=== PATIENT | female | born 1965 | race Caucasian/White ===

== ENCOUNTER → 2016-12-14 | Outpatient (CLI) | payer BC ==
--- NOTE | 2016-12-17 09:21 | MM ---
Reason for exam: screening (asymptomatic). Last mammogram was performed 14 years and 10 months ago. History: Taking estrogen. Physical Findings: A clinical breast exam by your physician is recommended on an annual basis and results should be correlated with mammographic findings. MG Screening Mammo w CAD Bilateral CC and MLO view(s) were taken. Prior study comparison: January 28, 2002, bilateral screening mammogram. The breast tissue is heterogeneously dense. This may lower the sensitivity of mammography. There is no discrete abnormality. ASSESSMENT: Negative, BI-RAD 1 RECOMMENDATION: Routine screening mammogram of both breasts in 1 year.
== END | disposition home or self-care (01) ==
LOC: RADMAMWWP 08:31
PROVIDERS: ATTEND Obstetrics & Gynecology
DX: Z12.31 Encounter for screening mammogram for malignant neoplasm of breast (principal)

== ENCOUNTER 2016-12-31 09:58 | Emergency (ER) | payer BC ==
[2016-12-31 10:13] VITALS: RESP 17
--- NOTE | 2016-12-31 10:28 | ED ---
Fall HPI - General Chief Complaint: Fall Stated Complaint: fall Time Seen by Provider: 12/31/16 10:15 Source: patient, RN notes reviewed Mode of arrival: ambulatory - History of Present Illness Initial Comments: 51-year-old female presents emergency 5 chief complaint of fall. Patient states that on Saturday morning she tripped on the stairs and fell down the stairs. Patient states she hit her head and her back as she went down the stairs. Patient states she continues to have a headache with nausea. Patient states she also continuous pain in her tailbone area. Patient states she went to work and she just was getting worse so she thought that she should be evaluated. Patient states also at that time she developed pain but that has resolved. Patient states she did not pass out when she hit her head. Patient states that there was no other injuries from the incident. Patient states that there is no other injuries at this time. - Related Data Home Medications Medication Instructions Recorded Confirmed Amoxicillin 500 mg PO TID 12/31/16 12/31/16 Ibuprofen [Motrin] 800 mg PO TID PRN 12/31/16 12/31/16 guaiFENesin [Mucinex] 600 mg PO Q12H PRN 12/31/16 12/31/16 methylPREDNISolone [Medrol Dose See Taper PO DAILY 12/31/16 12/31/16 Pack] Allergies Allergy/AdvReac Type Severity Reaction Status Date / Time No Known Allergies Allergy Verified 12/31/16 10:22 Review of Systems ROS Statement: Those systems with pertinent positive or pertinent negative responses have been documented in the HPI. ROS Other: All systems not noted in ROS Statement are negative. Past Medical History Past Medical History: No Reported History History of Any Multi-Drug Resistant Organisms: None Reported Past Surgical History: Cholecystectomy Past Psychological History: No Psychological Hx Reported Smoking Status: Former smoker Past Alcohol Use History: Occasional Past Drug Use History: None Reported General Exam Limitations: no limitations General appearance: alert, in no apparent distress Head exam: Present: atraumatic, normocephalic, normal inspection ENT exam: Present: normal exam, mucous membranes moist Neck exam: Present: normal inspection. Absent: tenderness, meningismus, lymphadenopathy Respiratory exam: Present: normal lung sounds bilaterally. Absent: respiratory distress, wheezes, rales, rhonchi, stridor Cardiovascular Exam: Present: regular rate, normal rhythm, normal heart sounds. Absent: systolic murmur, diastolic murmur, rubs, gallop, clicks Back exam: Present: normal inspection, full ROM, tenderness (In the sacrum cocci area). Absent: muscle spasm, paraspinal tenderness, vertebral tenderness Neurological exam: Present: alert, oriented X3, CN II-XII intact. Absent: motor sensory deficit Psychiatric exam: Present: normal affect Skin exam: Present: warm, dry, intact, normal color. Absent: rash Course Vital Signs 12/31/16 10:07 Temperature 97.0 F L Pulse Rate 63 Respiratory 17 Rate Blood Pressure 128/78 O2 Sat by Pulse 95 Oximetry Medical Decision Making - Medical Decision Making 51-year-old female presents to emergency department with a chief complaint of fall. At this time due to the patient's continuing headache and nausea we will get a CAT scan was likely the patient has a concussion but we will rule out any intracranial process. We will skin x-ray patient several due to her increased pain to touch as well as complaint of pain. At this time patient's imaging is reviewed and negative for any acute traumatic process. We did discuss the findings with the patient and family. They stated they understood and agreed and plan. We discussed patient'sphysician as well as a simple contusion. The patient and family stated they understood all questions have been answered. They will be discharged. - Radiology Data Radiology results: report reviewed, image reviewed Disposition Clinical Impression: Fall, Coccyx contusion, Concussion Disposition: HOME SELF-CARE Condition: Stable Instructions: Concussion (ED), Coccyx Injury (ED) Additional Instructions: Please use medication as discussed. Please follow up with family doctor if symptoms have not improved over the next two days. Please return to the emergency room if your symptoms increase or worsen or for any other concerns. Referrals: Zack Boston MD [Primary Care Provider] - 1-2 days Time of Disposition: 11:37
--- NOTE | 2016-12-31 11:13 | XR ---
EXAMINATION TYPE: XR sacrum coccyx DATE OF EXAM: 12/31/2016 10:59 AM CLINICAL HISTORY: pain TECHNIQUE: Three views of the sacrum and coccyx are submitted. COMPARISON: none Sacral alae appear symmetric. No evidence for fracture or bony lesion. Sacroiliac joints are within normal limits. Visualized coccygeal segments are free of fracture or lesion. Degenerative changes L 5-S1. IMPRESSION: No fracture identified.
--- NOTE | 2016-12-31 11:32 | CT ---
EXAMINATION TYPE: CT brain wo con DATE OF EXAM: 12/31/2016 10:59 AM COMPARISON: NONE HISTORY: fell. Fall injury with headache. CT DLP: 953.8 mGycm. Automated Exposure Control for Dose Reduction was Utilized. TECHNIQUE: CT scan of the head is performed without contrast. FINDINGS: There is no acute intracranial hemorrhage, mass effect, or midline shift identified. The ventricles and sulci are within normal limits in size. Becerril-white matter differentiation is maintain ed. The globes are intact bilaterally. There is mild mucosal thickening in left maxillary sinus. Ther e is mild to moderate mucosal thickening in right maxillary sinus with patchy fluid. There is mild to moderate mucosal thickening in ethmoid sinuses bilaterally. Some opacification anteriorly is present bilaterally. There is mild mucosal thickening and dependent fluid in the left frontal sinus inferior ly. The calvarium is intact. IMPRESSION: No acute intracranial hemorrhage or midline shift is seen. Incidental acute on chronic p aranasal sinus disease.
[2016-12-31] MEDS ORDERED: KETOROLAC 60 MG/2 ML VIAL IM STA (11:35)
[2016-12-31 12:03] VITALS: BP 134/82; PULSE 72; TEMP 97.1
== END 2016-12-31 12:01 | disposition home or self-care (01) ==
LOC: EC 09:58
DX: S06.0X0A Concussion without loss of consciousness, initial encounter (principal); S30.0XXA Contusion of lower back and pelvis, initial encounter; Z87.891 Personal history of nicotine dependence; Z79.52 Long term (current) use of systemic steroids; W10.9XXA Fall (on) (from) unspecified stairs and steps, initial encounter
CPT/HCPCS: 99284; 96372; 72220; 70450; J1885

== ENCOUNTER → 2020-03-15 | Outpatient (CLI) | payer BC ==
[2020-03-15 12:56] LABS: Basophils % (A) 0 %; Eosinophils # (A) 0.3 k/uL (0-0.7); Eosinophils % (A) 4 %; HCT 48.8 % (34.0-46.0); HGB 15.9 gm/dL (11.4-16.0); Lymphocytes # (A) 2.1 k/uL (1.0-4.8); Lymphocytes % (A) 32 %; MCH 30.2 pg (25.0-35.0); MCHC 32.6 g/dL (31.0-37.0); MCV 92.6 fL (80.0-100.0); Mean Platelet Volume 7.6; Monocytes # (A) 0.4 k/uL (0-1.0); Monocytes % (A) 6 %; Neutrophils # (A) 3.7 k/uL (1.3-7.7); Neutrophils % (A) 57 %; Platelet Count 321 k/uL (150-450); RBC 5.26 m/uL (3.80-5.40); RDW 12.5 % (11.5-15.5); WBC 6.5 k/uL (3.8-10.6)
[2020-03-15 19:00] LABS: African American GFR (CKD) 97.6 (60.0-200.0); Albumin 4.3 g/dL (3.80-4.90); Albumin/Globulin Ratio 2.05 (1.60-3.17); Anion Gap 11.2 mmol/L (4.00-12.00); BUN/Creat Ratio 21.25 Ratio (12.00-20.00); Calcium 9.7 mg/dL (8.7-10.3); Carbon Dioxide 26.8 mmol/L (21.6-31.8); Chol/HDL Ratio 3.96; Globulin 2.1 g/dL (1.6-3.3); LDL Cholesterol,Calculated 125.6 mg/dL (0.0-131.0); Non-African American GFR(CKD) 84.2 (60.0-200.0); Potassium 4.2 mmol/L (3.5-5.5); Total Bilirubin 0.6 mg/dL (0.3-1.2); Total Protein 6.4 g/dL (6.2-8.2); VLDL Calculation 25.4 mg/dL (5.00-40.00)
== END | disposition home or self-care (01) ==
LOC: LABWHC1 11:57
PROVIDERS: ATTEND Family Medicine
DX: Z00.00 Encounter for general adult medical examination without abnormal findings (principal); I10 Essential (primary) hypertension; B89 Unspecified parasitic disease
CPT/HCPCS: 36415; 80053; 80061; 83036; 84443; 85025

== ENCOUNTER → 2020-04-25 | Outpatient (CLI) | payer BC ==
--- NOTE | 2020-04-25 11:45 | CT ---
EXAMINATION TYPE: CT brain w con DATE OF EXAM: 04/25/2020 COMPARISON: HISTORY: headache, vertigo CT DLP: 927.3 mGycm Automated exposure control for dose reduction was used. CONTRAST: CT scan of the head is performed with IV Contrast, patient injected with 100 mL of Isovue 300. FINDINGS: There is no abnormal enhancing mass or midline shift identified. The ventricles and sulci are within normal limits in size. The globes are intact and the visualized sinuses are remarkable for inflamma tory changes in the ethmoid air cells. IMPRESSION: Negative contrast enhanced head CT exam. Sinus disease.
== END | disposition home or self-care (01) ==
LOC: RADCTMAIN 10:46
PROVIDERS: ATTEND Family Medicine
DX: G44.89 Other headache syndrome (principal)
CPT/HCPCS: 70460; Q9967